=== PATIENT | male | born 1995 | race Two or more races ===

== ENCOUNTER 2020-08-06 22:21 | Emergency (ER) | payer OTHER, SELFPAY ==
[2020-08-06 22:26] VITALS: BP 159/74; PULSE 60; RESP 16; TEMP 36.8; O2SAT 99; BMI 29.5
--- NOTE | 2020-08-06 23:16 | ED_ITS ---
HPI - Wound/Laceration General Chief Complaint: Wound/Laceration Stated Complaint: Finger laceration Time Seen by Provider: 08/06/20 23:47 Source: patient Mode of arrival: ambulatory Limitations: no limitations History of Present Illness HPI narrative: 24-year-old male presents with finger laceration to the left index after slipping with a knife while cutting vegetables. He was able to wash the wound out apply pressure dressing but was not able to stop the bleeding. He does not report any other symptoms at this time. Onset (ago): hour(s) ( Within the hour of arrival) Extremity Location: left: hand Place: home Patient tetanus UTD: No Context: accidental Associated symptoms: pain Treatments prior to arrival: bandage Related Data Allergies Allergy/AdvReac Type Severity Reaction Status Date / Time No Known Allergies Allergy Verified 08/06/20 23:16 Review of Systems Review of Systems: Constitutional: No Fever, No Chills ENT/Mouth: No Ear Pain, No Hoarseness, No sore throat Eyes: No Eye Pain, No Swelling, No Redness, No Foreign Body Cardiovascular: No Chest Pain, No SOB Respiratory: No Cough, No Dyspnea Gastrointestinal: No Nausea, No Vomiting, No Diarrhea, No abdominal Pain Genitourinary: No Dysuria, No Hematuria Musculoskeletal: no joint pain, No Myalgias, No Joint Swelling Skin: positive left index finger laceration, No rash Neuro: No Weakness, No Numbness, No Paresthesias, No Loss of Consciousness, No Dizziness, No Headache Psych: No Anxiety/Panic, No Depression Heme/Lymph: no easy bruising, no Lymphadenopathy Endocrine: No Polyuria, No Polydipsia Yes all other systems are reviewed and are negative [facility] Past Medical History Attestation statement: The following information was validated with the patient. Medical History No known health problems Social History Social History Advance Directives: No Advance Directives Information Provided: No Physical Exam Vital Signs: Vital Signs: Last Vital Signs Temp 98.2 F 08/06/20 22:26 Pulse 60 08/06/20 22:26 Resp 16 08/06/20 22:26 BP 159/74 H 08/06/20 22:26 Pulse Ox 99 08/06/20 22:26 Body Mass Index 29.5 Appearance: Alert. Oriented X3. No acute distress. Eyes: Pupils equal, round and reactive to light. ENT: Pharynx normal. Neck: Normal inspection. Neck supple. CVS: Normal heart rate and rhythm. Pulses normal. Respiratory: No respiratory distress. Breath sounds normal. Abdomen: Soft and nontender. Skin: 3 cm laceration to left index finger, brisk capillary refill, full range of motion. Normal skin color. Normal skin turgor. Extremities: No lower extremity edema. Neuro: No motor deficit. No sensory deficit. Course Course Course Narrative: 24-year-old male presents with laceration to the left index finger. Plan of care is for suturing and x-ray for bone involvement. Prepped and draped in sterile fashion, patient tolerated procedure well. Eight sutures placed. X-ray negative for bone involvement or foreign body. Brisk capillary refill and full range of motion status post laceration repair. Patient does understand that he must return in 7-10 days for suture removal. Patient verbalizes understanding of and agrees to plan of care discharge home. Procedures Laceration Laceration 1: Site: hand Side (If applicable): left ( index finger) Size (cm): 3 Description: flap Depth: simple, single layer Local Anesthetic: lidocaine 2% Amount of anesthesia used (mL): 4 Pre-repair: wound explored, irrigated extensively and deep structures intact Skin layer closed with: nylon Size (cm): 5-0 Number of sutures: 8 Technique: simple, interrupted MDM - Wound/Laceration Differential Diagnosis Differential diagnosis: Likely laceration Medical Records Attestation: I reviewed the patient's medical records. Lab Data Attestation: I reviewed the patient's lab results. Imaging Data Left index finger x-ray: Attestation: I personally reviewed and interpreted this imaging study as follows: Radiologist's impression: EXAMINATION: XR FINGER, LEFT CLINICAL INFORMATION: Laceration of index finger. COMPARISON: None TECHNIQUE: 3 views of the left index finger. FINDINGS: No radiopaque foreign body. The bones and soft tissues are normal. No fracture. Alignment is anatomic. Joint spaces are maintained. XR/XR finger LT min 2V IMPRESSION: Normal left index finger. Discharge Plan Discharge Clinical Impression: Laceration Patient Disposition: Home, Self-Care Instructions: Laceration (ED), Acute Wounds (ED) Additional Instructions: you were evaluated for laceration to the left index finger. We placed 8 sutures. You must return in 7-10 days to have sutures removed. Do not soak the finger in water, bathe or swim until laceration is completely healed. You may shower. Monitor for signs and symptoms of infection. If you notice any redness, swelling or purulent drainage from the site please return to the emergency department or your primary care provider for treatment. We updated Your Tdap vaccine today. Thank you for choosing this emergency department for evaluation. Please follow-up with primary care physician as needed. Return to the emergency dep artment for any new, concerning, or worsening symptoms. Interventions: ED Discharge Assessment Last Done: 08/07/20 00:27 Discharge Date/Time: 08/07/20 00:29
[2020-08-06] MEDS: Lidocaine HCl 2 % MPF 5 ML VIAL SUBCUT (23:27)
== END 2020-08-07 00:29 | disposition home or self-care (01) ==
PROVIDERS: Emergency Provider Internal Medicine
DX: S61.211A Laceration without foreign body of left index finger without damage to nail, initial encounter (principal); W26.0XXA Contact with knife, initial encounter; Y93.G1 Activity, food preparation and clean up; Y92.010 Kitchen of single-family (private) house as the place of occurrence of the external cause; Y99.9 Unspecified external cause status
CPT/HCPCS: 12002; 73140; 90471; 90715; 99283; 99284